=== PATIENT | female | born 1990 | race Caucasian/White ===

== ENCOUNTER 2016-12-28 21:41 | Emergency (ER) | payer OTHER ==
[~2016-12-28] VITALS: Ht 162.6 cm; Wt 68.0 kg
[~2016-12-28 21:41] MED LIST: IBUPROFEN800 M1 PO
--- NOTE | 2016-12-28 22:02 | ED THROAT/DENTAL COMPLAINT ---
History of Present Illness General Chief Complaint: Sore Throat, Dental Pain Stated Complaint: SWOLLEN TONSILS Source: patient Exam Limitations: no limitations Vital Signs & Intake/Output Vital Signs & Intake/Output Vital Signs Date Time Temp Pulse Resp B/P Pulse O2 O2 Flow FiO2 Ox Delivery Rate 12/28 2237 98.9 74 18 135/86 99 Room Air 12/288 98.8 80 18 147/99 99 Room Air ED Intake and Output 12/29 0000 12/28 1200 Intake Total 0 Output Total Balance 0 Intake, Oral 0 Patient 150 lb Weight Allergies Coded Allergies: NO KNOWN ALLERGIES (03/08/16) Reconcile Medications Amoxicillin 875 MG TABLET 1 TAB PO BID INFECTION Ibuprofen 800 MG TABLET 1 TAB PO TID PRN PAIN Triage Note: PRESENTS TO ED FOR EVALUATION OF SORE THROAT AND SWOLLEN TONSILS. DENIED FEVER. Triage Nurses Notes Reviewed? yes Onset: Gradual Duration: day(s): (4) Timing: recent history Injury Environment: home Severity: severe Modifying Factors: Worsens With: other (SWALLOWING). Associated Symptoms: SORE THROAT, SWOLLEN TONSILS : No Patient currently breastfeeds: No HPI: This is a 26-year-old presents to the operative complete of URI symptoms for the past 4 days, low-grade temperature on Wednesday night and worsening sore throat that started today. Pain with swallowing. Positive cough but no sputum production. Denies any significant fever or chills. Denies any abdominal pain. She complains of swollen tonsils. She last took 800 mg of ibuprofen 2 hours prior to arrival. Past History Travel History Traveled to [place] past 21 day No Medical History Any Pertinent Medical History? see below for history Neurological: NONE EENT: NONE Cardiovascular: NONE Respiratory: NONE Gastrointestinal: NONE Hepatic: NONE Renal: NONE Musculoskeletal: NONE Psychiatric: NONE Endocrine: NONE Blood Disorders: NONE Cancer(s): NONE SOFTWARE ANALYST/Reproductive: NONE Surgical History Surgical History: non-contributory Psychosocial History What is your primary language Portuguese Tobacco Use: Never used Family History Hx Contributory? No Review of Systems Review of Systems Constitutional: Reports: fever (LOW-GRADE). Denies: chills. EENTM: Reports: throat pain. Respiratory: Reports: cough. Denies: short of breath, sputum production. Cardiovascular: Denies: chest pain, palpitations. GI: Denies: abdominal pain. Genitourinary: Reports: no symptoms. Musculoskeletal: Reports: no symptoms. Skin: Reports: no symptoms. Neurological/Psychological: Reports: no symptoms. Hematologic/Endocrine: Denies: bruising, bleeding, polyuria, polydipsia. Immunologic/Allergic: Denies: splenectomy. All Other Systems: Reviewed and Negative Physical Exam Physical Exam General Appearance: well developed/nourished, alert, awake Head: atraumatic, normal appearance Eyes: Bilateral: normal appearance, PERRL, EOMI. Ears: Bilateral: canal normal, Tympanic normal, bleeding. Nose: normal inspection Mouth/Throat: pharynx swelling, pharynx tenderness, tonsillar swelling ( BILATERAL) Neck: normal inspection, supple, full range of motion Cardiovascular/Respiratory: normal breath sounds, normal peripheral pulses Gastrointestinal: SOFT NONTENDER Neurologic/Psych: no motor/sensory deficits, awake, alert, oriented x 3 Skin: intact, normal color, warm/dry Core Measures ACS in differential dx? No Severe Sepsis Present: No Septic Shock Present: No Progress Differential Diagnosis: PHARYNGITIS, TONSILLITIS, MONONUCLEOSIS Plan of Care: Orders Procedure Date/time Status THROAT CULTURE W/QUICK STREP 12/28 2208 Active Departure Departure Time of Disposition: 2233 Disposition: HOME OR SELF CARE Condition: Stable Clinical Impression Primary Impression: Tonsillitis Referrals: ERIC MAHMOOD,AVE Thomas (PCP/Family) Additional Instructions: Take amoxicillin as directed. Take Motrin as stated for pain. Follow-up with her doctor in the office. Return to the ER for any changing or worsening symptoms. Departure Forms: Customer Survey General Discharge Information Prescriptions: Current Visit Scripts Amoxicillin 1 TAB PO BID #20 TAB
[2016-12-28] MEDS ORDERED: AMOXICILLIN875 M1 PO (22:12)
[2016-12-28 22:37] VITALS: BP 135/86
== END 2016-12-28 22:38 ==
LOC: ERH 21:41
DX: J03.90 Acute tonsillitis, unspecified (principal)
CPT/HCPCS: 96374